=== PATIENT | female | born 1945 | race Caucasian/White ===

== ENCOUNTER 2016-09-21 00:17 | Emergency (ER) | payer BC ==
[2016-09-21] MEDS ORDERED: Ondansetron INJ* 2 MG/ML VIAL IV ONE (01:07)
[2016-09-21] MEDS ORDERED: NS 0.9% 1000 ML* 1,000 ML IV ONE (01:07)
[2016-09-21 01:18] LABS: Hematocrit 46 % (35-47); Hemoglobin 15.1 g/dl (12.0-16.0); Mean Corpuscular HGB Conc 33 g/dl (31-36); Mean Corpuscular Hemoglobin 30 pg (27-31); Mean Corpuscular Volume 89 fL (80-97); Mean Platelet Volume 8 um3 (7.4-10.4); Red Cell Distribution Width 13 % (10.5-15); White Blood Count 10.1 10^3/ul (3.5-10.8)
[2016-09-21 01:29] LABS: Albumin 3.9 g/dL (3.2-5.2); BUN/Creatinine Ratio 14.9 (8-20); Calcium 9.2 mg/dL (8.6-10.3); EGFR African American 60.4 (>60); Potassium 3.9 mmol/L (3.5-5.0); Total Protein 6.9 g/dL (6.4-8.9)
[2016-09-21 02:34] VITALS: BP 152/65
--- NOTE | 2016-09-21 05:10 | ED ---
Abdominal Pain/Female - HPI Summary HPI Summary: Patient presents for evaluation of vomting and diarrhea for the last 18 hours. Daughter had similar symptoms 3 days ago. Vomit is non bloody and non bilious. Diarrhea is watery, non bloody and nonmucoid. Denies systemic symptoms, abd pain, new or bad foods, travel or recent antibiotics. - History of Current Complaint Chief Complaint: EDNauseaVomitDiarrh Stated Complaint: VOMITING,SYNCOPE Time Seen by Provider: 09/21/16 00:41 Hx Obtained From: Patient, Family/Sandwich Artist Onset/Duration: Gradual Onset Severity Initially: Moderate Severity Currently: Moderate Pain Intensity: 0 Pain Scale Used: 0-10 Numeric Allergies/Adverse Reactions: Allergies Allergy/AdvReac Type Severity Reaction Status Date / Time Penicillins Allergy Unknown Verified 08/30/13 12:27 Reaction Details PMH/Surg Hx/FS Hx/Imm Hx Infectious Disease History: No Infectious Disease History: Denies: Traveled Outside the [place] in Last 30 Days - Social History Alcohol Use: Occasionally Substance Use Type: Reports: None Smoking Status (MU): Never Smoked Tobacco Review of Systems Negative: Fever, Chills Positive: Vomiting, Diarrhea, Nausea. Negative: Abdominal Pain All Other Systems Reviewed And Are Negative: Yes Physical Exam Triage Information Reviewed: Yes Vital Signs On Initial Exam: Initial Vitals Temp Pulse Resp BP Pulse Ox 100.0 F 105 14 167/67 100 09/21/16 00:20 09/21/16 00:20 09/21/16 00:20 09/21/16 00:20 09/21/16 00:20 Vital Signs Reviewed: Yes Appearance: Positive: Well-Appearing, No Pain Distress, Well-Nourished Skin: Positive: Warm, Skin Color Reflects Adequate Perfusion, Dry Respiratory/Lung Sounds: Positive: Clear to Auscultation, Breath Sounds Present Cardiovascular: Positive: Normal, RRR, Pulses are Symmetrical in both Upper and Lower Extremities Abdomen Description: Positive: Nontender, No Organomegaly, Soft. Negative: CVA Tenderness (R), CVA Tenderness (L) Musculoskeletal: Positive: Normal, Strength/ROM Intact Neurological: Positive: Normal, Sensory/Motor Intact, Alert, Oriented to Person Place, Time, CN Intact II-III, Reflexes Intact, Normal Gait - [place] Coma Scale Coma Scale Total: 15 Diagnostics - Vital Signs Vital Signs Temp Pulse Resp BP Pulse Ox 09/21/16 02:00 90 14 152/65 96 09/21/16 01:00 97 22 97 09/21/16 00:52 95 95 09/21/16 00:50 143/76 09/21/16 00:20 100.0 F 105 14 167/67 100 - Laboratory Lab Results: Lab Results 09/21/16 09/21/16 Range/Units 01:00 01:00 WBC 10.1 (3.5-10.8) 10^3/ul RBC 5.10 (4.0-5.4) 10^6/ul Hgb 15.1 (12.0-16.0) g/dl Hct 46 (35-47) % MCV 89 (80-97) fL MCH 30 (27-31) pg MCHC 33 (31-36) g/dl RDW 13 (10.5-15) % Plt Count 271 (150-450) 10^3/ul MPV 8 (7.4-10.4) um3 Neut % (Auto) 90.9 H (38-83) % Lymph % (Auto) 3.8 L (25-47) % Archuleta % (Auto) 4.6 (1-9) % Eos % (Auto) 0.3 (0-6) % Baso % (Auto) 0.4 (0-2) % Absolute Neuts (auto) 9.2 H (1.5-7.7) 10^3/ul Absolute Lymphs (auto) 0.4 L (1.0-4.8) 10^3/ul Absolute Monos (auto) 0.5 (0-0.8) 10^3/ul Absolute Eos (auto) 0 (0-0.6) 10^3/ul Absolute Basos (auto) 0 (0-0.2) 10^3/ul Absolute Nucleated RBC 0 10^3/ul Nucleated RBC % 0 Sodium 136 (133-145) mmol/L Potassium 3.9 (3.5-5.0) mmol/L Chloride 103 (101-111) mmol/L Carbon Dioxide 25 (22-32) mmol/L Anion Gap 8 (2-11) mmol/L BUN 17 (6-24) mg/dL Creatinine 1.14 H (0.51-0.95) mg/dL Est GFR ( Amer) 60.4 (>60) Est GFR (Non-Af Amer) 47.0 (>60) BUN/Creatinine Ratio 14.9 (8-20) Glucose 111 H (70-100) mg/dL Calcium 9.2 (8.6-10.3) mg/dL Total Bilirubin 1.00 (0.2-1.0) mg/dL AST 23 (13-39) U/L ALT 24 (7-52) U/L Alkaline Phosphatase 74 (34-104) U/L Total Protein 6.9 (6.4-8.9) g/dL Albumin 3.9 (3.2-5.2) g/dL Globulin 3.0 (2-4) g/dL Albumin/Globulin Ratio 1.3 (1-3) Lipase 10 L (11.0-82.0) U/L Result Diagrams: 09/21/16 01:00 09/21/16 01:00 Lab Statement: Any lab studies that have been ordered have been reviewed, and results considered in the medical decision making process. Abdominal Pain Fem Course/Dx - Diagnoses Differential Diagnosis: Positive: Other - Primary concern for viral gastroenteritis and will eval for renal dysfunction after that volume of diarrhea. We discussed formal imaging, but she and family deferred. We did also discuss oral rehydration once feeling better. Provider Diagnoses: Gastroenteritis Discharge - Discharge Plan Condition: Improved Disposition: HOME Prescriptions: Dicyclomine CAP* [Bentyl CAP*] 20 mg PO TID PRN #10 cap PRN Reason: Abdominal Cramping Ondansetron TAB* [Zofran Tab*] 4 mg PO Q6H PRN #10 tab PRN Reason: Nausea Patient Education Materials: Gastroenteritis (ED) Referrals: Mayra Novoa MD [Primary Care Provider] -
== END 2016-09-21 02:33 | disposition home or self-care (01) ==
LOC: ED 00:17
DX: K52.9 Noninfective gastroenteritis and colitis, unspecified (principal); Z88.0 Allergy status to penicillin
CPT/HCPCS: 36415; 80053; 83690; 85025; 93005; 96360; 96374; 99282; J2405

== ENCOUNTER → 2018-11-19 14:16 | Emergency (ER) | payer MEDICARE ==
[~2018-11-19 14:16] MED LIST: Hydrochlorothiazide TAB* 25 MG PO ONE
--- NOTE | 2018-11-19 14:56 | ED ---
Lower Extremity - HPI Summary HPI Summary: Patient is a 72-year-old female who presents emergency department for evaluation of left-sided rib pain and left ankle pain after fall that occurred 1 week ago. Patient states she slipped on a rug at her house and fell landing on her left side. Denies head injury or loss of consciousness at that time. Patient states she's had some ongoing pain to her left rib cage and left ankle. Patient states she went to see her chiropractor who recommended she have x- rays negative for he continued to manipulation. Patient otherwise denies chest pain, shortness of breath, fever, abdominal pain. She states that pain is improving slowly. Patient also notes she restarted pressure medication, HCTZ, and forgot to take it this morning. Symptoms are mild in severity. Movement makes symptoms worse. Rest makes symptoms better. Patient also notes ongoing chronic edema to her lower extremities. She follows with her family doctor and a regular basis. - History of Current Complaint Chief Complaint: EDFall Stated Complaint: FALL ON 11/13 LEFT RIB PAIN/LEFT ANKLE AND FOOT PA Time Seen by Provider: 11/19/18 14:27 Hx Obtained From: Patient Pain Intensity: 6 - Allergies/Home Medications Allergies/Adverse Reactions: Allergies Allergy/AdvReac Type Severity Reaction Status Date / Time MS Penicillins [Penicillins] Allergy Unknown Verified 11/19/18 14:28 Reaction Details Home Medications: Home Medications Hydrochlorothiazide TAB* [Hydrodiuril TAB*] 25 mg PO DAILY 11/19/18 [History Confirmed 11/19/18] PMH/Surg Hx/FS Hx/Imm Hx Previously Healthy: Yes Endocrine/Hematology History: Denies: Hx Diabetes Cardiovascular History: Reports: Hx Hypertension - ON MEDS Denies: Hx Pacemaker/ICD History: Denies: Hx Renal Disease Sensory History: Denies: Hx Hearing Aid Psychiatric History: Denies: Hx Panic Disorder - Surgical History Surgery Procedure, Year, and Place: TUBAL LIGATION 07/1986. UMBILICAL HERNIA SURGERY 07/1986. TONSILS AGE 4. LASER SURGERY ON VEINS IN LEGS Infectious Disease History: No Infectious Disease History: Denies: Traveled Outside the [place] in Last 30 Days - Family History Known Family History: Positive: Non-Contributory - Social History Occupation: Retired Lives: With Family Alcohol Use: Occasionally Substance Use Type: Reports: None Smoking Status (MU): Never Smoked Tobacco Review of Systems Constitutional: Negative Negative: Fever Cardiovascular: Negative Negative: Palpitations, Chest Pain Respiratory: Negative Negative: Shortness Of Breath, Cough Positive: Other - left ankle pain All Other Systems Reviewed And Are Negative: Yes Physical Exam Triage Information Reviewed: Yes Vital Signs On Initial Exam: Initial Vitals Temp Pulse Resp BP Pulse Ox 97.8 F 68 18 202/97 97 11/19/18 14:23 11/19/18 14:23 11/19/18 14:23 11/19/18 14:23 11/19/18 14:23 Vital Signs Reviewed: Yes Appearance: Positive: Well-Appearing - Pt. sitting in chair in NAD. Talkative. present. Skin: Positive: Warm, Dry Head/Face: Positive: Normal Head/Face Inspection Eyes: Positive: Normal, EOMI, LAURYN Neck: Positive: Supple, Nontender Respiratory/Lung Sounds: Positive: Clear to Auscultation, Breath Sounds Present. Negative: Rales, Rhonchi, Wheezes Cardiovascular: Positive: Normal, RRR Musculoskeletal: Positive: Normal, Strength/ROM Intact, Other - Pain on palpation over left lateral mid ribs. Mild pain over lateral malleolus of ankle. +1 pitting edema bilaterally pt. states is chronic. Neurological: Positive: Normal, CN Intact II-III Psychiatric: Positive: Affect/Mood Appropriate Diagnostics - Vital Signs Vital Signs Temp Pulse Resp BP Pulse Ox 11/19/18 14:23 97.8 F 68 18 202/97 97 - Laboratory Lab Statement: Any lab studies that have been ordered have been reviewed, and results considered in the medical decision making process. Lower Extremity Course/Dx - Course Course Of Treatment: Pt. presenting for evaluation of injuries that occurred one week ago. Afebrile. O2 saturation 97% on RA. BP elevated at 202/97, pt. notes she did not take her BP medication today. Xrays of ankle and ribs negative for acute findings per radiology. Pt. was given a dose of rx BP medication. Advised to call PCP today for close f.u. Advised to take medication daily as directed. Tylenol or motrin for pain as directed. To return to ER if sxs change or worsen. - Diagnoses Differential Diagnosis/HQI/PQRI: Positive: Arthritis, Fracture (Closed), Sprain , Strain Provider Diagnoses: Rib contusion, Ankle sprain, Hypertension Discharge - Sign-Out/Discharge Documenting (check all that apply): Patient Departure Patient Received Moderate/Deep Sedation with Procedure: No - Discharge Plan Condition: Good Disposition: HOME Patient Education Materials: Ankle Sprain (ED), Rib Contusion (ED) Referrals: Mayra Novoa MD [Primary Care Provider] - Additional Instructions: Schedule a follow up appointment with your PCP Take your blood pressure as soon you get home Ice areas intermittently Tylenol or Motrin for pain as directed Return to ER if symptoms change or worsen - Billing Disposition and Condition Condition: GOOD Disposition: Home
[2018-11-19 16:29] VITALS: BP 201/90
== END | disposition home or self-care (01) ==
LOC: ED 14:16
DX: S20.212A Contusion of left front wall of thorax, initial encounter (principal); S93.402A Sprain of unspecified ligament of left ankle, initial encounter; W01.0XXA Fall on same level from slipping, tripping and stumbling without subsequent striking against object, initial encounter; Y92.019 Unspecified place in single-family (private) house as the place of occurrence of the external cause; I10 Essential (primary) hypertension; Z88.0 Allergy status to penicillin
CPT/HCPCS: 99282; A9270-GY

== ENCOUNTER 2019-10-05 12:50 | Emergency (ER) | payer MEDICARE ==
--- NOTE | 2019-10-05 14:16 | ED ---
Respiratory - HPI Summary HPI Summary: Patient is a 73 y/o F presenting to [facility] with complaints of a notably productive cough that has been present for the past five days. Cough has slightly improved recently. No SOB noted, no fever as vitals show 97.6 F. Patient is concerned for PNA and claims Hx of such. She denies Hx of asthma, COPD, DVT, PE, CHF, and cardiac disease. has had URI Sx. Patient has not been tested for influenza. Home medications and allergies are reviewed. Home Medications Medication Instructions Recorded Confirmed Type Calcium Carbonate [Calcium] 500 mg PO DAILY 10/05/19 10/05/19 History Naproxen Sodium [Aleve] 220 mg PO DAILY PRN 10/05/19 10/05/19 History - History of Current Complaint Chief Complaint: EDFluSymptoms Stated Complaint: FLU SYMPTOMS PER PT Time Seen by Provider: 10/05/19 13:34 Hx Obtained From: Patient Onset/Duration: Lasting Days, Still Present Current Severity: None Pain Intensity: 0 Character: Cough (Productive) Sputum Amount: Moderate Associated Signs and Symptoms: Negative - Allergy/Home Medications Allergies/Adverse Reactions: Allergies Allergy/AdvReac Type Severity Reaction Status Date / Time Penicillins Allergy Unknown Verified 10/05/19 14:14 Reaction Details Home Medications: Home Medications Calcium Carbonate [Calcium] 500 mg PO DAILY 10/05/19 [History Confirmed 10/05/19 ] Naproxen Sodium [Aleve] 220 mg PO DAILY PRN 10/05/19 [History Confirmed 10/05/19 ] PMH/Surg Hx/FS Hx/Imm Hx Endocrine/Hematology History: Denies: Hx Diabetes Cardiovascular History: Reports: Hx Hypertension - ON MEDS Denies: Hx Congestive Heart Failure, Hx Deep Vein Thrombosis, Hx Embolism, Hx Pacemaker/ICD Respiratory History: Reports: Hx Pneumonia Denies: Hx Asthma, Hx Chronic Obstructive Pulmonary Disease (COPD) History: Denies: Hx Renal Disease Sensory History: Denies: Hx Hearing Aid Psychiatric History: Denies: Hx Panic Disorder - Surgical History Surgery Procedure, Year, and Place: TUBAL LIGATION 07/1986. UMBILICAL HERNIA SURGERY 07/1986. TONSILS AGE 4. LASER SURGERY ON VEINS IN LEGS Infectious Disease History: No Infectious Disease History: Denies: Traveled Outside the [place] in Last 30 Days - Family History Known Family History: Positive: Cardiac Disease - Social History Alcohol Use: Occasionally Substance Use Type: Reports: None Smoking Status (MU): Never Smoked Tobacco Review of Systems Negative: Fever Positive: Cough. Negative: Shortness Of Breath All Other Systems Reviewed And Are Negative: Yes Physical Exam - Summary Physical Exam Summary: Constitutional: Well-developed, Well-nourished, Alert. (-) Distressed Skin: Warm, Dry HENT: Normocephalic; Atraumatic Eyes: Conjunctiva normal Neck: Musculoskeletal ROM normal neck. (-) JVD, (-) Stridor, (-) Tracheal deviation Cardio: Rhythm regular, rate normal, Heart sounds normal; Intact distal pulses; The pedal pulses are 2+ and symmetric. Radial pulses are 2+ and symmetric. (-) Murmur Pulmonary/Chest wall: Frequent cough. Effort normal. (-) Respiratory distress, ( -) Wheezes, (-) Rales Abd: Soft, (-) tenderness, (-) Distension, (-) Guarding, (-) Rebound Musculoskeletal: (-) Edema Lymph: (-) Cervical adenopathy Neuro: Alert, Oriented x3 Psych: Mood and affect Normal Triage Information Reviewed: Yes Vital Signs On Initial Exam: Initial Vitals Temp Pulse Resp BP Pulse Ox 97.8 F 93 18 187/131 97 10/05/19 12:52 10/05/19 12:52 10/05/19 12:52 10/05/19 12:52 10/05/19 12:52 Vital Signs Reviewed: Yes Procedures - Sedation Patient Received Moderate/Deep Sedation with Procedure: No Diagnostics - Vital Signs Vital Signs Temp Pulse Resp BP Pulse Ox 10/05/19 12:52 97.8 F 93 18 187/131 97 - Laboratory Result Diagrams: 10/05/19 13:59 10/05/19 13:59 Lab Statement: Any lab studies that have been ordered have been reviewed, and results considered in the medical decision making process. - Radiology CXR Radiology Interpretation Completed By: Radiologist Summary of Radiographic Findings: IMPRESSION: No acute cardiopulmonary process by radiograph. THIS REPORT WAS REVIEWED BY ED PHYSICIAN. - EKG 1405 Cardiac Rate: NL - rate of 92 BPM EKG Rhythm: Sinus Rhythm Summary of EKG Findings: EKG showed sinus rhythm with rate of 92 BPM, no ischemic changes. ED physician has reviewed and interpreted this EKG. Disposition - Course Course Of Treatment: Patient is a 73 y/o F presenting to [facility] with complaints of a notably productive cough that has been present for the past five days. Cough has slightly improved recently. No SOB noted, no fever as vitals show 97.6 F. Patient is concerned for PNA and claims Hx of such. She denies Hx of asthma, COPD, DVT, PE, CHF, and cardiac disease. has had URI Sx. Patient has not been tested for influenza. On physical exam, frequent cough is noted. EKG showed sinus rhythm with rate of 92 BPM, no ischemic changes. CXR IMPRESSION: No acute cardiopulmonary process by radiograph. Bloodwork within normal limits with exception of 116 glucose. Influenza A and B were negative. Patient was discharged to home with PCP followup. - Diagnoses Provider Diagnoses: Acute bronchitis Discharge ED - Sign-Out/Discharge Documenting (check all that apply): Patient Departure - DISCHARGE - Discharge Plan Condition: Stable Disposition: HOME Patient Education Materials: Acute Bronchitis (ED) Referrals: Mayra Novoa MD [Primary Care Provider] - 3 Days Additional Instructions: PLEASE RETURN FOR ANY NEW OR CONCERNING SYMPTOMS. PLEASE FOLLOW UP WITH YOUR PRIMARY CARE PHYSICIAN WITHIN THREE DAYS. - Billing Disposition and Condition Condition: STABLE Disposition: Home - Attestation Statements Document Initiated by Freida: Yes Documenting Scribe: CATHY THOMPSON Provider For Whom Freida is Documenting (Include Credential): AUNG XIONG DO Scribcarol ann Attestation: CATHY Heath scribed for AUNG XIONG DO on 10/05/19 at 1923. Scribe Documentation Reviewed: Yes Provider Attestation: The documentation as recorded by the CATHY keenan accurately reflects the service I personally performed and the decisions made by AUNG steward DO Status of Scribcarol ann Document: Viewed
[2019-10-05 14:28] LABS: ABS Eosinophils 0.1 10^3/ul (0-0.6); ABS Lymphocytes 1.2 10^3/ul (1.0-4.8); ABS Monocytes 0.4 10^3/ul (0-0.8); Eosinophil % 1.6 %; Hematocrit 41 % (35-47); Hemoglobin 14.4 g/dL (12.0-16.0); Lymphocyte % 25.5 %; Mean Corpuscular HGB Conc 35 g/dL (31-36); Mean Corpuscular Hemoglobin 31 pg (27-31); Mean Corpuscular Volume 87 fL (80-97); Mean Platelet Volume 7.7 fL (7.4-10.4); Platelet Count 382 10^3/uL (150-450); Red Blood Count 4.69 10^6 /uL (3.70-4.87); Red Cell Distribution Width 13 % (10-15); White Blood Count 4.8 10^3/uL (3.5-10.8)
[2019-10-05 14:46] LABS: Influenza A Molecular Negative (Negative); Influenza B Molecular Negative (Negative)
[2019-10-05 14:50] LABS: Albumin 4.2 g/dL (3.2-5.2); Albumin/Globulin Ratio 1.4 (1-3); BUN/Creatinine Ratio 19.1 (8-20); Calcium 9.5 mg/dL (8.6-10.3); Globulin 3.1 g/dL (2-4); Total Bilirubin 0.5 mg/dL (0.2-1.0); Total Protein 7.3 g/dL (6.4-8.9)
[2019-10-05 16:04] LABS: Potassium 4.4 mmol/L (3.5-5.0)
[2019-10-05 16:27] VITALS: BP 175/120
== END 2019-10-05 16:26 | disposition home or self-care (01) ==
LOC: ED 12:50
DX: J20.9 Acute bronchitis, unspecified (principal); R05 Cough; I10 Essential (primary) hypertension; Z79.899 Other long term (current) drug therapy; Z88.0 Allergy status to penicillin
CPT/HCPCS: 36415; 71046; 80053; 85025; 93005; 99283